=== PATIENT | male | born 1935 | race Caucasian/White ===

== ENCOUNTER 2017-09-25 10:16 | Inpatient (IN) | payer MEDICARE, OTHER ==
[2017-09-25 11:17] LABS: Hemoglobin 15.5 g/dL (14.0-18.0); Mean Corpuscular HGB CONC 32.9 g/dL (32.0-36.0); Mean Corpuscular Hemoglobin 34.4 pg (27.0-31.0); Mean Platelet Volume 8.3 fL (7.4-10.4); Platelet Count 184 thou/uL (130-400); RBC Distribution Width 12.8 % (11.5-14.5); White Blood Cell (WBC) Count 23.3 thou/uL (4.8-10.8)
[2017-09-25 11:31] LABS: Band 24 % (5-11); Lymphocytes 3 % (21-51); MDiff Complete? YES; Monocytes 1 % (0-10); Neutrophil 71 % (42-75); RBC Morphology Normal; Reactive Lymphocytes 1 % (0-10)
[2017-09-25 11:33] LABS: ALT (SGPT) 20 U/L (8-55); AST (SGOT) 20 U/L (5-34); Alkaline Phosphatase 126 U/L (40-150); Anion Gap 15 mmol/L (10-20); BUN (Urea Nitrogen) 27 mg/dL (8.4-25.7); Bilirubin, Total 1.8 mg/dL (0.2-1.2); Calc. Creatinine Clearance 0 mL/min (70-130); Calcium 10.2 mg/dL (7.8-10.44); Carbon Dioxide 23 mmol/L (23-31); Chloride 106 mmol/L (98-107); Estimated GFR-MDRD 60; Globulin 3.9 g/dL (2.4-3.5); Glucose 234 mg/dL (83-110); Potassium 4.1 mmol/L (3.5-5.1); Protein, Total 7.9 g/dL (5.8-8.1); Sodium 140 mmol/L (136-145)
[2017-09-25] MEDS ORDERED: ISOVUE-370 76%-LOCM 1 ML ONE (11:41)
--- NOTE | 2017-09-25 11:46 | RAD ---
AP CHEST: Indication: Altered mental status, shortness of breath. FINDINGS: There is bibasilar airspace opacity which may reflect bibasilar pneumonia or aspiration. The opacity involving the right lung base has persist since May 2017. There is some blunting to the costoph renic angle, suspicious for tiny effusions. Calcified granuloma in the right upper lobe is similar. C ardiomediastinal silhouette is unchanged. No acute osseous abnormality is evident. IMPRESSION: Bibasilar airspace opacity suspicious for pneumonia or aspiration. The right lung basilar opacity wa s present on the comparison 05-28-17. Recommend consideration for CT examination for further evaluation . Code T POS: FRANCISCA
[2017-09-25 12:23] LABS: CKMB 3.1 ng/mL (0-6.6); Troponin I 0.032 ng/mL (< 0.028)
[2017-09-25] MEDS ORDERED: methylPREDNISolone Sod Succ/PF 125 MG/2 ML VIAL ONE (12:25)
[2017-09-25] MEDS ORDERED: Cefepime 2 GM, Syringe 2.5 ML in Sterile Water 10 ML SLOW IVP SCH (12:30)
[2017-09-25] MEDS ORDERED: Oseltamivir 75 MG CAP PO SCH ×2 (12:30→14:15)
[2017-09-25 13:00] LABS: Lipase Less than 4 U/L (8-78); Magnesium 1.8 mg/dL (1.6-2.6)
[2017-09-25 13:07] LABS: Bilirubin Negative (Negative); Blood, Urine Negative (Negative); Clarity CLEAR (Clear); Glucose, Urine (Dipstick) Negative (Negative); Leukocyte Negative (Negative); Nitrite Negative (Negative); Protein, Urine (Dipstick) Negative (Neg-Trace); Specific Gravity, Urine 1.022 (1.002-1.036); pH, Urine 5.5 (5.0-9.0)
--- NOTE | 2017-09-25 14:25 | CT ---
CTA THORAX WITH CONTRAST: (Computed Tomographic Angiography, chest(noncoronary) with contrast material, and image postprocessin g) (PE protocol) DATE: 09-25-2017 HISTORY: 82-year-old male with dyspnea and cough. TECHNIQUE: IV injection of iodinated contrast: Isovue Scan acquisition timing attempted to coincide with iodinated contrast bolus reaching maximal density in pulmonary arteries. 3D MIP reconstructions. FINDINGS: There is a collection of airspace densities at all the basilar segments of the left lower lobe, consi stent with pneumonia. There is no pulmonary thromboembolism in the pulmonic trunk, left and right louise n pulmonary arteries, or their proximal branches. There is significant breathing motion artifact degr ading the images of the lower lobe branches of the pulmonary arteries, especially the left. Thoracic aorta is tortuous and has atherosclerotic calcifications, but there is no aortic dissection or aneury sm. No cardiomegaly, pleural effusion, or pneumothorax. Mild ground glass densities at the basilar se gments of the right lower lobe, nonspecific. The left basilar infiltrates are much worse than on prev ious CT of 01-04-16. There is a new, approximately 9 mm noncalcified irregularly shaped pulmonary nodule at the lateral as pect of the lingula (axial image 105 of 146, series 3; coronal image 37 of 124, series 400). There is a small region of tree in bud pattern at the anterior segment of the left upper lobe, which is in a similar location to similar finding on the previous CT of 01-04-16, but the specific pattern o f arrangement is different, and therefore, this is probably a recurrent, similar such process (moore l image 21 or 124, series 400; axial images 79-93 of 146, series 3). In the contralateral right lower lobe superior segment, again demonstrated in the moderately large cl uster of densely calcified material within the lung parenchyma, stable and benign. There is an approximately 8 mm right lateral pleural based noncalcified pulmonary nodule at the later al basilar segment of the right lower lobe (axial image 113 of 146, series 3; coronal image 68 of 124 , series 400). There was a pulmonary nodule located slightly more posteriorly on the previous CT that is no longer present. The current nodule in this location is new. There are diffuse mild emphysematous changes throughout the lungs. Atherosclerotic calcification of c oronary arteries. IMPRESSION: 1. No evidence of central pulmonary thromboembolism. 2. Difficult to evaluate for left lower lobe branch pulmonary thromboembolism because of breathing mo tion artifact. 3. Evidence for left lower lobe pneumonia. 4. Multiple nodular and tree in bud densities in the anterior segment of the left upper lobe, consist ent with recurrent peribronchiolar infection. 5. At least two nonspecific small new bilateral pulmonary nodules (and interval resolution of previou sly demonstrated pulmonary nodules). Recommend six month follow up chest CT. 6. Coronary atherosclerotic disease. 7. Emphysema. Code lung nodule aguila POS: MILA
[2017-09-25] MEDS ORDERED: Acetaminophen 325 MG TAB PO PRN (15:51)
[2017-09-25] MEDS ORDERED: Ondansetron HCl/PF 4 MG/2 ML Vial IVP PRN (15:51)
[2017-09-25] MEDS ORDERED: Albuterol Sulfate 2.5 mg/3 ml Neb NEB PRN (15:51)
[2017-09-25] MEDS ORDERED: HYDROcodone/Acetaminophen 5/325 mg Tablet PO PRN (15:51)
[2017-09-25] MEDS ORDERED: Ondansetron ODT 4 MG TAB PO PRN (15:51)
--- NOTE | 2017-09-25 16:20 | HP ---
DATE OF ADMISSION: 09/25/2017 CHIEF COMPLAINT: Shortness of breath. HISTORY OF PRESENT ILLNESS: This is an 82-year-old elderly white male with no known past medical his tory, was recently suffering with some cough and cold for the past 1-2 weeks and has been going to [facility] primary care physician who started him on an antibiotic, which he took for almost 10 days to 2 week s and the patient had no relief with it and was having persistent shortness of breath and chest tight ness, so he decided to come to the ER for further evaluation. When patient presented to the ER, he h ad a regular workup done which showed elevated white count of 23,000. A chest x-ray, evidence of a b ilateral pneumonia. The patient otherwise was in good health. He was able to talk in full sentences . He required 3 liters of nasal cannula oxygen to keep him up to 92%. The patient denies having any known medical issues and he does not take any oral medications. He lives with his family, big joint family of 4 or 5 sons, and they live in one house and has good care. PAST MEDICAL HISTORY: None. PAST SURGICAL HISTORY: Left hip replacement, history of prostatectomy, and left hip repair. SOCIAL HISTORY: The patient is a not a known smoker. No history of alcohol. No history of illicit drug use. FAMILY HISTORY: No significant family history of coronary artery disease. This has been reviewed th oroughly and is not relevant for the elderly age of the patient. REVIEW OF SYSTEMS: All 12 systems are reviewed with the patient thoroughly. The following complete review of systems was negative, unless otherwise mentioned in the HPI or below: CONSTITUTIONAL: Weight loss or gain, sense of well-being, ability to conduct usual activities, exerc ise tolerance. SKIN/BREAST: Rash, itching, changes in hair growth or loss, nail changes, breast lumps, tenderness, swelling, nipple discharge. EYES: Vision, double vision, tearing, blind spots, pain. ENT/MOUTH: Headaches (location, time of onset, duration, precipitating factors), vertigo, lightheadedness, injury. Vision, double vision, tearing, blind spots, pain, nose b leeding, colds, obstruction, discharge, dental difficulties, gingival bleeding, dentures, neck stiffn ess, pain, tenderness, masses in thyroid or other areas CARDIOVASCULAR: Precordial pain, substernal distress, palpitations, syncope, dyspnea on exertion, or thopnea, nocturnal paroxysmal dyspnea, edema, cyanosis, hypertension, heart murmurs, varicosities, ph lebitis, claudication. RESPIRATORY: Pain, shortness of breath, wheezing, stridor, cough, hemoptysis, fever or night sweats GASTROINTESTINAL: Poor appetite, dysphagia, indigestion, abdominal pain, heartburn, eructation, naus ea, vomiting, hematemesis, jaundice, constipation, or diarrhea, abnormal stools (irina-colored, tarry, bloody, greasy, foul smelling), flatulence, hemorrhoids, recent changes in bowel habits. GENITOURINARY: Urgency, frequency, dysuria, nocturia, hematuria, polyuria, oliguria, unusual (or sagar nge in) color of urine, stones, hesitancy, change in size of stream, dribbling, acute retention or in continence, libido, potency. MUSCULOSKELETAL: Pain, swelling, redness or heat of muscles or joints, limitation, of motion, muscular weakness, atrophy, cramps. NEUROLOGIC/PSYCHIATRIC: Convulsions, paralyses, tremor, incoordination, paresthesias, difficulties w ith memory of speech, sensory or motor disturbances, or muscular coordination (ataxia, tremor), emoti onal problems, anxiety, depression, previous psychiatric care, unusual perceptions, hallucinations. ALLERGY/IMMUNOLOGIC: Skin rash, anemia, bleeding tendency, polydipsia, polyuria, intolerance to heat or cold. HOME MEDICATIONS: None. ALLERGIES: SULFA, SULFAMETHOXAZOLE, TRIMETHOPRIM. PHYSICAL EXAMINATION: VITAL SIGNS: Blood pressures are 130/80, heart rate is 88, respirations 18, saturation is 98% on guru m air. GENERAL: The patient is moderately built and moderately nourished. He does not appear to be in acut e distress at this time. HEENT: Atraumatic, normocephalic. PERRLA. Extraocular movements were intact. Oral mucosa is pink and moist. CARDIOVASCULAR: S1, S2 normal. No murmurs, rubs or gallops. LUNGS: Bilateral air entry was equal. No wheezing, no crackles. ABDOMEN: Soft and nontender. No guarding, no rebound tenderness. Bowel sounds normal. MUSCULOSKELETAL: No calf tenderness. No pedal edema. No tenderness. No joint swelling. SKIN: No cyanosis, no erythema, no rash, no pallor. NEUROLOGIC: Cranial nerve examination II-XII intact. No focal deficits were noted. LYMPHATICS: No evidence of any lymph nodes were noted. NECK: No evidence of any JVD or thyromegaly is noted. PSYCHIATRIC: No signs of suicidal ideation. No signs of matthew. No signs of depression. LABORATORY DATA: 1. WBC 23,000, hemoglobin is 15.5, hematocrit 47.0, platelets 184. 2. Sodium is 140, potassium 4.1, chloride 106, bicarb is 23, BUN 27, creatinine is 1.16. 3. BNP is 63. 4. Chest x-ray was reviewed by me was showing an evidence of bilateral infiltrates with opacities. ASSESSMENT AND PLAN: 1. Acute hypoxic respiratory failure. 2. Acute bilateral pneumonia, failed outpatient therapy. 3. Moderate dehydration. ASSESSMENT: 1. History of prostate cancer. 2. History of depression. PLAN: 1. Plan is to start the patient on nebulizer treatments every 4 hours with DuoNebs and albuterol neb s as needed. We will start the patient on IV antibiotics with cefepime and levofloxacin as the patie nt failed outpatient therapy. 2. We will closely monitor. If the patient showing no improvement, we will consult Pulmonary at brad t time. The patient presently has signs of developing sepsis with elevated lactic acid, but this cou ld be secondary to dehydration. We will closely monitor the patient. 3. The patient mentions a history of a stent placement, but more than 12 years ago, a cardiac stent placement and he does not see the band tier. We will continue the patient on aspirin at this time and losartan and rivastigmine. We will closely monitor this patient and will check 2D echo if there is no improvement in his breathing. 4. The patient has a history of elevated blood pressures as stated on, but he does not remember taki ng his medications. He is on losartan 100 mg p.o. daily. We will continue with this medication at t his time. 5. History of depression. No evidence of any low moods or depressive symptoms were noted. We will continue the patient on sertraline 25 mg p.o. daily. 6. History of prostate cancer removal. We will continue the patient on Tamsulosin 0.4 mg p.o. daily . 7. DVT prophylaxis, Lovenox 40 mg subcu daily. I spent 70 minutes on this patient.
[2017-09-25 16:49] LABS: Troponin I 0.026 ng/mL (< 0.028)
[2017-09-25 20:05] LABS: Lactic Acid 1.2 mmol/L (0.5-2.2)
[2017-09-25 20:14] LABS: Troponin I 0.024 ng/mL (< 0.028)
[2017-09-25] MEDS ORDERED: Cefepime 2 GM in Sodium Chloride 0.9% 100 ML IVPB SCH (21:00)
[2017-09-25] MEDS ORDERED: Famotidine/PF 20 mg/2ml Vial ONE (21:29)
[2017-09-26 01:35] VITALS: BMI 22.6
[2017-09-26] MEDS: Brimonidine Tartrate 0.2% Ophth Soln 5 ml Bottle EA EYE SCH ×4 (01:40→21:50)
[2017-09-26] MEDS: Sodium Chloride 0.9% 1,000 ML IV SCH ×4 (01:40→22:02)
[2017-09-26] MEDS: Latanoprost 0.005% Ophth Soln 2.5 ml Bottle EA EYE SCH ×2 (01:41→21:52)
[2017-09-26] MEDS: guaiFENesin ER 600 MG TAB PO SCH ×3 (01:41→21:48)
[2017-09-26] MEDS: Famotidine/PF 20 mg/2ml Vial SLOW IVP SCH ×3 (01:41→22:02)
[2017-09-26] MEDS: Cefepime 2 GM, Syringe 2.5 ML in Sterile Water 10 ML SLOW IVP SCH ×2 (04:26→14:29)
[2017-09-26 06:26] LABS: Anion Gap 10 mmol/L (10-20); BUN (Urea Nitrogen) 25 mg/dL (8.4-25.7); Calc. Creatinine Clearance 80 mL/min (70-130); Carbon Dioxide 20 mmol/L (23-31); Chloride 114 mmol/L (98-107); Estimated GFR-MDRD Greater than 90; Glucose 193 mg/dL (83-110); Potassium 3.5 mmol/L (3.5-5.1); Sodium 140 mmol/L (136-145)
[2017-09-26 06:37] LABS: Hemoglobin 11.7 g/dL (14.0-18.0); Mean Corpuscular HGB CONC 33.2 g/dL (32.0-36.0); Mean Corpuscular Hemoglobin 34.8 pg (27.0-31.0); Mean Platelet Volume 8.6 fL (7.4-10.4); Platelet Count 151 thou/uL (130-400); RBC Distribution Width 12.4 % (11.5-14.5); Red Blood Cell (RBC) Count 3.37 mill/uL (4.70-6.10); White Blood Cell (WBC) Count 20.9 thou/uL (4.8-10.8)
[2017-09-26 06:41] LABS: Band 12 % (5-11); Lymphocytes 3 % (21-51); MDiff Complete? YES; Monocytes 4 % (0-10); Neutrophil 80 % (42-75); PLT Morphology Comment Appears Adequate; Reactive Lymphocytes 1 % (0-10)
[2017-09-26] MEDS: Tamsulosin HCl 0.4 MG CAP PO SCH (10:20)
[2017-09-26] MEDS: Aspirin 81 mg Enteric Coated Tablet PO SCH (10:20)
[2017-09-26] MEDS: Losartan 25 MG TAB PO SCH (10:21)
[2017-09-26] MEDS: Enoxaparin Sodium 40 MG/0.4 ML SYRINGE SC SCH (10:22)
[2017-09-26] MEDS: Rivastigmine 9.5mg/24 Hour PATCH TOP SCH (10:35)
[2017-09-26] MEDS: Stress 600 With Zinc 1 TAB PO SCH (10:35)
--- NOTE | 2017-09-26 16:47 | PDOC.PN ---
- Subjective Encounter Start Date: 09/26/17 Encounter Start Time: 11:00 Patient Is seen today, along with his Grand daughter at bedside. he says he feels better, he remains on [place] oxygen. - Objective Resuscitation Status: Resuscitation Status FULL:Full Resuscitation MAR Reviewed: Yes Vital Signs & Weight: Vital Signs (12 hours) Temp Pulse Pulse Pulse Resp BP BP 09/26/17 13:20 98.1 F 64 18 09/26/17 12:37 09/26/17 12:30 09/26/17 11:36 60 12 09/26/17 09:35 84 88 120/59 L 133/61 09/26/17 09:05 97.8 F 67 20 09/26/17 08:02 97.8 F 60 20 BP Pulse Ox 09/26/17 13:20 120/61 93 L 09/26/17 12:37 95 09/26/17 12:30 90 L 09/26/17 11:36 09/26/17 09:35 09/26/17 09:05 120/61 93 L 09/26/17 08:02 Weight Admit Weight 171 lb 1.6 oz Weight 171 lb 1.6 oz I&O: 09/25/17 09/26/17 09/27/17 06:59 06:59 06:59 Intake Total 859 Output Total 425 Balance 434 Result Diagrams: 09/26/17 05:28 09/26/17 05:28 Radiology Reviewed by me: Yes Phys Exam - Physical Examination HEENT: PERRLA, moist MMs Neck: no nodes, no JVD Respiratory: no rhonchi, wheezing present Cardiovascular: RRR, no significant murmur, no rub Gastrointestinal: soft, non-tender, no distention Musculoskeletal: no edema, pulses present Neurological: non-focal, normal sensation Lymphatic: no nodes Psychiatric: normal affect, A&O x 3 Dx/Plan (1) Acute respiratory failure with hypoxia Code(s): J96.01 - ACUTE RESPIRATORY FAILURE WITH HYPOXIA Status: Acute (2) Centrilobular emphysema Code(s): J43.2 - CENTRILOBULAR EMPHYSEMA Status: Acute (3) Bilateral pneumonia Code(s): J18.9 - PNEUMONIA, UNSPECIFIED ORGANISM Status: Acute (4) Moderate dehydration Code(s): E86.0 - DEHYDRATION Status: Acute - Plan plan discussed w/ family, continue antibiotics, PT/OT, incentive spirometry, DVT proph w/lovenox * . Plan is to Continue with IV antibiotics, pt has Sepsis with Elevated WBC, improving slowly, Will repeat Chest xray tomorrow. Consulted Pulmonary waiting on recommedations,. Patient has signs suggestive of Ephesema with CT findings suggestive of possibel Alveolar inflammation, pt is high risk for sdecompensation, Will sharon Monitor. Patient is continued on Duonebs and albuteral nebs. Hay is also on Tamiflu for prophylaxis: DVT prophylaxis: lovenox 40mg Sc daily. - Discharge Day Encounter end time: 11:45 Review of Systems - Review of Systems Constitutional: weakness Eyes: negative: Pain, Vision Change, Conjunctivae Inflammation, Eyelid Inflammation, Redness, Other ENT: negative: Ear Pain, Ear Discharge, Nose Pain, Nose Discharge, Nose Congestion, Mouth Pain, Mouth Swelling, Throat Pain, Throat Swelling, Other Respiratory: Cough, Shortness of Breath, SOB with Excertion, Wheezing Cardiovascular: negative: chest pain, palpitations, orthopnea, paroxysmal nocturnal dyspnea, edema, light headedness, other Gastrointestinal: negative: Nausea, Vomiting, Abdominal Pain, Diarrhea, Constipation, Melena, Hematochezia, Other Genitourinary: negative: Dysuria, Frequency, Incontinence, Hematuria, Retention , Other Musculoskeletal: negative: Neck Pain, Shoulder Pain, Arm Pain, Back Pain, Hand Pain, Leg Pain, Foot Pain, Other Skin: negative: Rash, Lesions, Godfrey, Bruising, Other Neurological: negative: Weakness, Numbness, Incoordination, Change in Speech, Confusion, Seizures, Other - Medications/Allergies Allergies/Adverse Reactions: Allergies Allergy/AdvReac Type Severity Reaction Status Date / Time Sulfa (Sulfonamide Allergy Verified 04/11/17 17:16 Antibiotics) sulfamethoxazole Allergy Verified 04/11/17 17:16 [From Bactrim] trimethoprim [From Bactrim] Allergy Verified 04/11/17 17:16 Medications: Current Medications Acetaminophen (Tylenol) 650 mg PO Q4H PRN PRN Reason: Headache/Fever or Pain Hydrocodone Bitart/Acetaminophen ([place] 5/325) 1 tab PO Q4H PRN PRN Reason: Moderate Pain (4-6) Albuterol Sulfate (Ventolin) 2.5 mg NEB Q2H PRN PRN Reason: Wheezing Albuterol/Ipratropium (Duoneb) 3 ml NEB QID PRN PRN Reason: SOB &/or Wheezing Albuterol/Ipratropium (Duoneb) 3 ml NEB [id number] [facility] Last Admin: 09/26/17 11:36 Dose: 3 ml Aspirin (Ecotrin) 81 mg PO DAILY [facility] Last Admin: 09/26/17 10:20 Dose: 81 mg Brimonidine Tartrate (Alphagan 0.2% [facility] Sol) 1 drop EA EYE TID [facility] Last Admin: 09/26/17 14:34 Dose: 1 drop Enoxaparin Sodium (Lovenox) 40 mg SC 0900 [facility] Last Admin: 09/26/17 10:22 Dose: 40 mg Famotidine (Pepcid) 20 mg SLOW IVP Q12HR [facility] Last Admin: 09/26/17 10:21 Dose: 20 mg Guaifenesin (Mucinex) 1,200 mg PO Q12HR [facility] Last Admin: 09/26/17 10:20 Dose: 1,200 mg Levofloxacin 750 mg/ Device 150 mls @ 100 mls/hr IVPB Q24HR [facility] Last Admin: 09/26/17 01:40 Dose: Not Given Sodium Chloride (Normal Saline 0.9%) 1,000 mls @ 100 mls/hr IV .Q10H [facility] Last Admin: 09/26/17 11:32 Dose: 1,000 mls Cefepime HCl 2 gm/ Syringe 2.5 (ml/ Sterile Water) 12.5 mls @ 150 mls/hr SLOW IVP 0300,1500 [facility] Last Admin: 09/26/17 14:29 Dose: 12.5 mls Latanoprost (Xalatan 0.005% [facility] Soln) 1 drop EA EYE HS [facility] Last Admin: 09/26/17 01:41 Dose: Not Given Losartan Potassium (Cozaar) 100 mg PO DAILY [facility] Last Admin: 09/26/17 10:21 Dose: 100 mg Multivitamins/Zinc (Stress 600 With Zinc) 1 tab PO QAM [facility] Last Admin: 09/26/17 10:35 Dose: 1 tab Ondansetron HCl (Zofran Odt) 4 mg PO Q6H PRN PRN Reason: Nausea/Vomiting Ondansetron HCl (Zofran) 4 mg IVP Q6H PRN PRN Reason: Nausea/Vomiting Pneumococcal 13-Valent Conj Vacc (Prevnar) 0.5 ml IM .ONCE ONE Stop: 09/27/17 09:01 Rivastigmine (Exelon Patch) 9.5 mg TOP DAILY [facility] Last Admin: 09/26/17 10:35 Dose: 9.5 mg Sertraline HCl (Zoloft) 25 mg PO DAILY [facility] Last Admin: 09/26/17 10:35 Dose: 25 mg Tamsulosin HCl (Flomax) 0.4 mg PO DAILY [facility] Last Admin: 09/26/17 10:20 Dose: 0.4 mg
[2017-09-27] MEDS: Cefepime 2 GM, Syringe 2.5 ML in Sterile Water 10 ML SLOW IVP SCH ×2 (05:47→14:46)
[2017-09-27 06:44] LABS: Anion Gap 10 mmol/L (10-20); BUN (Urea Nitrogen) 25 mg/dL (8.4-25.7); Calc. Creatinine Clearance 81 mL/min (70-130); Calcium 8.7 mg/dL (7.8-10.44); Carbon Dioxide 20 mmol/L (23-31); Chloride 115 mmol/L (98-107); Estimated GFR-MDRD Greater than 90; Glucose 147 mg/dL (83-110); Potassium 3.5 mmol/L (3.5-5.1); Sodium 141 mmol/L (136-145)
[2017-09-27 06:50] LABS: Band 6 % (5-11); Eosinophils 1 % (0-10); Lymphocytes 8 % (21-51); MDiff Complete? YES; Mean Corpuscular HGB CONC 33.3 g/dL (32.0-36.0); Mean Platelet Volume 8.1 fL (7.4-10.4); Monocytes 1 % (0-10); Neutrophil 84 % (42-75); Platelet Count 158 thou/uL (130-400); RBC Distribution Width 12.6 % (11.5-14.5); Red Blood Cell (RBC) Count 3.43 mill/uL (4.70-6.10); White Blood Cell (WBC) Count 11.8 thou/uL (4.8-10.8)
--- NOTE | 2017-09-27 08:59 | RAD ---
FRONTAL VIEW CHEST: Indication: Short of breath, pneumonia. FINDINGS: There is alveolar consolidation at the right lung base. Patchy left basilar opacity is present. There are interstitial opacities of each lung. Cardiac silhouette and pulmonary vasculature are prominent. There is ectasia and tortuosity at the thoracic aorta. IMPRESSION: Bilateral pulmonary parenchymal opacities which may be on the basis of bilateral, atypical pneumonia. Superimposed bilateral pleural fluid is suspected. Continued follow up is warranted. POS: FRANCISCAH
[2017-09-27] MEDS ORDERED: Prevnar 13-Val Conj/PF 0.5 ML SYRINGE IM ONE (09:00)
[2017-09-27] MEDS: Aspirin 81 mg Enteric Coated Tablet PO SCH (10:10)
[2017-09-27] MEDS: Sodium Chloride 0.9% 1,000 ML IV SCH (10:10)
[2017-09-27] MEDS: Stress 600 With Zinc 1 TAB PO SCH (10:10)
[2017-09-27] MEDS: Losartan 25 MG TAB PO SCH (10:10)
[2017-09-27] MEDS: guaiFENesin ER 600 MG TAB PO SCH ×2 (10:11→21:57)
[2017-09-27] MEDS: Enoxaparin Sodium 40 MG/0.4 ML SYRINGE SC SCH (10:11)
[2017-09-27] MEDS: Famotidine/PF 20 mg/2ml Vial SLOW IVP SCH (10:11)
[2017-09-27] MEDS: Tamsulosin HCl 0.4 MG CAP PO SCH (10:11)
[2017-09-27] MEDS: Rivastigmine 9.5mg/24 Hour PATCH TOP SCH (10:11)
[2017-09-27] MEDS: Brimonidine Tartrate 0.2% Ophth Soln 5 ml Bottle EA EYE SCH ×3 (10:12→21:51)
--- NOTE | 2017-09-27 13:56 | PDOC.PN ---
- Subjective Encounter Start Date: 09/27/17 Encounter Start Time: 13:00 Patient is seen along with Family at bed side, pt remains on oxygen, discussed with son, pt has remote h/o COPD, recently admitted many times since 6 months for SOB, never referred to pulmonary. requesting pulmonary consult. - Objective Resuscitation Status: Resuscitation Status FULL:Full Resuscitation MAR Reviewed: Yes Vital Signs & Weight: Vital Signs (12 hours) Temp Pulse Resp BP Pulse Ox 09/27/17 12:33 98.6 F 77 18 130/69 94 L 09/27/17 11:22 80 20 97 09/27/17 11:09 80 20 97 09/27/17 08:00 97.4 F L 78 16 164/79 H 99 09/27/17 07:01 91 L 09/27/17 06:59 82 20 91 L 09/27/17 04:00 97.9 F 85 18 123/58 L 90 L 09/27/17 02:49 77 16 95 Weight Admit Weight 171 lb 1.6 oz Weight 177 lb I&O: 09/26/17 09/27/17 09/28/17 06:59 06:59 06:59 Intake Total 859 2107 Output Total 425 730 Balance 434 1377 Result Diagrams: 09/27/17 05:55 09/27/17 05:55 Radiology Reviewed by me: Yes (Pleural fluid bilaterally,? chf) Phys Exam - Physical Examination HEENT: PERRLA, moist MMs Neck: no nodes, no JVD Respiratory: no rales, wheezing present Cardiovascular: RRR, no significant murmur Gastrointestinal: soft, non-tender Musculoskeletal: no edema, pulses present Lymphatic: no nodes Psychiatric: normal affect, A&O x 3 Dx/Plan (1) Acute respiratory failure with hypoxia Code(s): J96.01 - ACUTE RESPIRATORY FAILURE WITH HYPOXIA Status: Acute (2) Centrilobular emphysema Code(s): J43.2 - CENTRILOBULAR EMPHYSEMA Status: Acute (3) Bilateral pneumonia Code(s): J18.9 - PNEUMONIA, UNSPECIFIED ORGANISM Status: Acute (4) Moderate dehydration Code(s): E86.0 - DEHYDRATION Status: Resolved (5) Volume overload Code(s): E87.70 - FLUID OVERLOAD, UNSPECIFIED Status: Acute - Plan cont current plan of care, continue antibiotics, PT/OT, respiratory therapy, incentive spirometry, out of bed/ambulate, DVT proph w/lovenox * . Patient has likely volume overload, with fluid on lungs, will d/c IV fluids, will start on lasix 20mg IV BID, monitor renal fucntions, will order BNP and 2D Echo. r/o CHF. pt has h/o stents in the past. Plan is to Continue with IV antibiotics, pt has Sepsis with Elevated WBC, improving slowly, repeat Chest xray showed pleural fluid bilaterally. Consulted Pulmonary for recurrent admisisons with worsening emphesema. Patient has signs suggestive of Ephesema with CT findings suggestive of possibel Alveolar inflammation, pt is high risk for sdecompensation, Will sharon Monitor. Patient is continued on Duonebs and albuteral nebs. Hay is also on Tamiflu for prophylaxis: DVT prophylaxis: lovenox 40mg Sc daily. - Discharge Day Encounter end time: 13:35 Review of Systems - Review of Systems Constitutional: weakness Eyes: negative: Pain, Vision Change, Conjunctivae Inflammation, Eyelid Inflammation, Redness, Other ENT: negative: Ear Pain, Ear Discharge, Nose Pain, Nose Discharge, Nose Congestion, Mouth Pain, Mouth Swelling, Throat Pain, Throat Swelling, Other Respiratory: Cough, Shortness of Breath, SOB with Excertion. negative: Dry, Hemoptysis, Pleuritic Pain, Sputum, Wheezing Cardiovascular: negative: chest pain, palpitations, orthopnea, paroxysmal nocturnal dyspnea, edema, light headedness, other Gastrointestinal: negative: Nausea, Vomiting, Abdominal Pain, Diarrhea, Constipation, Melena, Hematochezia, Other Genitourinary: negative: Dysuria, Frequency, Incontinence, Hematuria, Retention , Other Musculoskeletal: negative: Neck Pain, Shoulder Pain, Arm Pain, Back Pain, Hand Pain, Leg Pain, Foot Pain, Other Skin: negative: Rash, Lesions, Godfrey, Bruising, Other Neurological: negative: Weakness, Numbness, Incoordination, Change in Speech, Confusion, Seizures, Other - Medications/Allergies Allergies/Adverse Reactions: Allergies Allergy/AdvReac Type Severity Reaction Status Date / Time Sulfa (Sulfonamide Allergy Verified 04/11/17 17:16 Antibiotics) sulfamethoxazole Allergy Verified 04/11/17 17:16 [From Bactrim] trimethoprim [From Bactrim] Allergy Verified 04/11/17 17:16 Medications: Current Medications Acetaminophen (Tylenol) 650 mg PO Q4H PRN PRN Reason: Headache/Fever or Pain Hydrocodone Bitart/Acetaminophen ([place] 5/325) 1 tab PO Q4H PRN PRN Reason: Moderate Pain (4-6) Albuterol Sulfate (Ventolin) 2.5 mg NEB Q2H PRN PRN Reason: Wheezing Albuterol/Ipratropium (Duoneb) 3 ml NEB QID PRN PRN Reason: SOB &/or Wheezing Albuterol/Ipratropium (Duoneb) 3 ml NEB [id number] [facility] Last Admin: 09/27/17 11:09 Dose: 3 ml Aspirin (Ecotrin) 81 mg PO DAILY [facility] Last Admin: 09/27/17 10:10 Dose: 81 mg Brimonidine Tartrate (Alphagan 0.2% Ophth Soln) 1 drop EA EYE TID [facility] Last Admin: 09/27/17 10:12 Dose: 1 drop Enoxaparin Sodium (Lovenox) 40 mg SC 0900 [facility] Last Admin: 09/27/17 10:11 Dose: 40 mg Famotidine (Pepcid) 20 mg SLOW IVP Q12HR [facility] Last Admin: 09/27/17 10:11 Dose: 20 mg Furosemide (Lasix) 20 mg SLOW IVP 0600,1400 [facility] Guaifenesin (Mucinex) 1,200 mg PO Q12HR [facility] Last Admin: 09/27/17 10:11 Dose: 1,200 mg Levofloxacin 750 mg/ Device 150 mls @ 100 mls/hr IVPB Q24HR [facility] Last Admin: 09/26/17 18:38 Dose: 150 mls Cefepime HCl 2 gm/ Syringe 2.5 (ml/ Sterile Water) 12.5 mls @ 150 mls/hr SLOW IVP 0300,1500 [facility] Last Admin: 09/27/17 05:47 Dose: 12.5 mls Latanoprost (Xalatan 0.005% [facility] Soln) 1 drop EA EYE HS [facility] Last Admin: 09/26/17 21:52 Dose: Not Given Losartan Potassium (Cozaar) 100 mg PO DAILY [facility] Last Admin: 09/27/17 10:10 Dose: 100 mg Multivitamins/Zinc (Stress 600 With Zinc) 1 tab PO QAM [facility] Last Admin: 09/27/17 10:10 Dose: 1 tab Ondansetron HCl (Zofran Odt) 4 mg PO Q6H PRN PRN Reason: Nausea/Vomiting Ondansetron HCl (Zofran) 4 mg IVP Q6H PRN PRN Reason: Nausea/Vomiting Rivastigmine (Exelon Patch) 9.5 mg TOP DAILY [facility] Last Admin: 09/27/17 10:11 Dose: 9.5 mg Sertraline HCl (Zoloft) 25 mg PO DAILY [facility] Last Admin: 09/27/17 10:11 Dose: 25 mg Tamsulosin HCl (Flomax) 0.4 mg PO DAILY [facility] Last Admin: 09/27/17 10:11 Dose: 0.4 mg
[2017-09-27] MEDS: Furosemide 20 MG/2 ML VIAL SLOW IVP SCH (14:46)
[2017-09-27] MEDS: Latanoprost 0.005% Ophth Soln 2.5 ml Bottle EA EYE SCH (21:50)
[2017-09-27] MEDS: Famotidine 20 MG TAB PO SCH (21:51)
[2017-09-28] MEDS: Cefepime 2 GM, Syringe 2.5 ML in Sterile Water 10 ML SLOW IVP SCH (04:23)
[2017-09-28] MEDS: Furosemide 20 MG/2 ML VIAL SLOW IVP SCH ×2 (06:17→14:52)
[2017-09-28 06:47] LABS: Anion Gap 11 mmol/L (10-20); BUN (Urea Nitrogen) 22 mg/dL (8.4-25.7); Calc. Creatinine Clearance 76 mL/min (70-130); Calcium 9.1 mg/dL (7.8-10.44); Carbon Dioxide 26 mmol/L (23-31); Chloride 108 mmol/L (98-107); Estimated GFR-MDRD Greater than 90; Glucose 123 mg/dL (83-110); Potassium 3.5 mmol/L (3.5-5.1); Sodium 141 mmol/L (136-145)
[2017-09-28 07:24] LABS: Anisocytosis SLIGHT = 6-15 cells (100X) (0-5/hpf); Band 1 % (5-11); Eosinophils 2 % (0-10); Hemoglobin 12.6 g/dL (14.0-18.0); Lymphocytes 26 % (21-51); MDiff Complete? YES; Mean Corpuscular HGB CONC 33.3 g/dL (32.0-36.0); Mean Corpuscular Hemoglobin 34.9 pg (27.0-31.0); Monocytes 5 % (0-10); Neutrophil 66 % (42-75); Platelet Count 191 thou/uL (130-400); RBC Distribution Width 12.5 % (11.5-14.5); Red Blood Cell (RBC) Count 3.61 mill/uL (4.70-6.10); White Blood Cell (WBC) Count 6.5 thou/uL (4.8-10.8)
[2017-09-28] MEDS: Brimonidine Tartrate 0.2% Ophth Soln 5 ml Bottle EA EYE SCH ×3 (09:00→23:14)
[2017-09-28] MEDS: Losartan 25 MG TAB PO SCH (10:03)
[2017-09-28] MEDS: Aspirin 81 mg Enteric Coated Tablet PO SCH (10:04)
[2017-09-28] MEDS: Famotidine 20 MG TAB PO SCH ×2 (10:04→23:33)
[2017-09-28] MEDS: guaiFENesin ER 600 MG TAB PO SCH ×2 (10:04→23:07)
[2017-09-28] MEDS: Tamsulosin HCl 0.4 MG CAP PO SCH (10:05)
--- NOTE | 2017-09-28 13:39 | PDOC.PN ---
- Subjective Encounter Start Date: 09/28/17 Encounter Start Time: 08:30 -: old records requested/rev Pt seen and examined, chart reviewed in its entirety. This is my first visit with this patient. Prt sitting up ont he BS commode, no CP, no SOb, no N/V/D/C, no F/c. Pt still requiring 2L O2 NC. No new complaints. Pt states hes planning on going home, [employer] has him set up to go to [facility] on discharge. Will discuss with pt and family 10 point ROS performed and neg for all systems except as above - Objective Resuscitation Status: Resuscitation Status FULL:Full Resuscitation MAR Reviewed: Yes Vital Signs & Weight: Vital Signs (12 hours) Temp Pulse Resp BP Pulse Ox 09/28/17 11:53 76 20 09/28/17 11:12 97.3 F L 70 18 135/65 97 09/28/17 08:00 97.7 F 76 20 155/80 H 94 L 09/28/17 06:35 92 L 09/28/17 06:34 79 20 92 L 09/28/17 04:00 98.4 F 75 18 131/64 97 09/28/17 02:26 58 L 16 99 Weight Admit Weight 171 lb 1.6 oz Weight 161 lb I&O: 09/27/17 09/28/17 09/29/17 06:59 06:59 06:59 Intake Total 2107 1800 Output Total 730 3150 Balance 1377 -1350 Result Diagrams: 09/28/17 05:19 09/28/17 05:19 Radiology Reviewed by me: Yes EKG Reviewed by me: Yes Phys Exam - Physical Examination Constitutional: NAD HEENT: PERRLA, moist MMs, sclera anicteric, oral pharynx no lesions Neck: no nodes, no JVD, supple, full ROM Respiratory: no wheezing, no rales, no rhonchi, clear to auscultation bilateral bilateral crackles in both bases. Cardiovascular: RRR, no significant murmur, no rub Gastrointestinal: soft, non-tender, no distention, positive bowel sounds Musculoskeletal: pulses present, edema present Neurological: non-focal, normal sensation, moves all 4 limbs Lymphatic: no nodes Psychiatric: normal affect, A&O x 3 Skin: no rash, normal turgor, cap refill <2 seconds Dx/Plan (1) Acute respiratory failure with hypoxia Code(s): J96.01 - ACUTE RESPIRATORY FAILURE WITH HYPOXIA Status: Acute Comment: wean O2 as tolerated, may need for a short preiod. to Rehab or home likely tomorrow (2) Bilateral pneumonia Code(s): J18.9 - PNEUMONIA, UNSPECIFIED ORGANISM Status: Acute Qualifiers: Pneumonia type: due to unspecified organism Lung location: lower lobe of lung Qualified Code(s): J18.9 - Pneumonia, unspecified organism Comment: community acquired, PCR with rhinovirus, responding well to abx. continue for another few days (3) Centrilobular emphysema Code(s): J43.2 - CENTRILOBULAR EMPHYSEMA Status: Chronic (4) Volume overload Code(s): E87.70 - FLUID OVERLOAD, UNSPECIFIED Status: Acute Qualifiers: Hypervolemia type: other Qualified Code(s): E87.79 - Other fluid overload Comment: diuresis well, feeling better. CCM at present, re-eval in AM (5) Moderate dehydration Code(s): E86.0 - DEHYDRATION Status: Resolved - Plan cont current plan of care, plan discussed w/ family, continue antibiotics, PT/OT , social services manager, respiratory therapy * .
[2017-09-28] MEDS: Stress 600 With Zinc 1 TAB PO SCH (14:22)
[2017-09-28] MEDS: Rivastigmine 9.5mg/24 Hour PATCH TOP SCH (14:52)
[2017-09-28] MEDS: Enoxaparin Sodium 40 MG/0.4 ML SYRINGE SC SCH (14:52)
[2017-09-28] MEDS: Latanoprost 0.005% Ophth Soln 2.5 ml Bottle EA EYE SCH (23:15)
--- NOTE | 2017-09-29 07:42 | CON ---
DATE OF CONSULTATION: 09/28/2017 SERVICE: Pulmonary Medicine. REASON FOR CONSULTATION: COPD. HISTORY OF PRESENT ILLNESS: The patient is a very pleasant 82-year-old white male. In 2011, he lost his . After this occurred, it became apparent to his children that he was helping to match some of his underlying cognitive impairment. He has had slowly progressed to dementia over these 6 years . He could not balance the books. He lost his privilege for driving several years ago. He is getti ng to the point where he has had having decreasing stability on his legs despite being extraordinaril y strong. He has had 3 separate pneumonias in the past 3 years. They all seemed to happen during winter month. Either way, he was in his usual state of health until his family noticed that he was off. He had some confusion. He is also coughing up significant amount of green sputum. He was bro ught to the hospital. Blood pressure was low. He was discovered to have left lower lobe pneumonia. Antibiotics for the pneumonia were initiated. His white blood cell count was extraordinarily high a nd this is subsequently improved dramatically. He is being getting diuretics over the past 24 hours for possible volume overload. He is essentially returning to his usual state of health, but still re quires a little bit of oxygen because he de-saturates whenever it is improved. He has severe COPD. This is based on emphysematous changes on the CT scan of lung. He has never had pulmonary function s tudies, but truth be told, he may not be able to undergo those. The family requested that he see a [facility] doctor because of severe COPD. In the outpatient setting, he has dyspnea that does limit his act ivity. He uses DuoNeb scheduled 3 times daily. Outside of this, he was not on any breathing medicat ions. He typically takes 1 to 2 minutes to recover from any mild activity. This has also been slowl y progressive over the past 5 to 10 years. PAST MEDICAL HISTORY: 1. BPH. 2. Dementia. 3. Hypertension. 4. Depression. PAST SURGICAL HISTORY: 1. Left hip replacement. 2. Prostatectomy. 3. Left hip repair. SOCIAL HISTORY: Negative for alcohol, tobacco or illicit drug use. He has a greater than 150 pack y ear history of smoking, but quit a long time ago. He denies any exposure to chemicals, dust, asbesto s or tuberculosis. FAMILY HISTORY: Noncontributory. REVIEW OF SYSTEMS: General, head, ears, eyes, nose, throat, cardiovascular, respiratory, GI, , mus culoskeletal, neurologic and skin is negative except as mentioned in the HPI. PHYSICAL EXAMINATION: VITAL SIGNS: Afebrile, pulse 76, blood pressure 135/67, respirations 20, saturations 92% on 2 L nasa l cannula. GENERAL: The patient is awake and alert, in no apparent distress. LUNGS: Excellent air entry. There is a prolonged expiratory phase. I typically do not hear much in the way of wheezing or crackles. There are no rhonchi present anteriorly. Dependently, there are s ome crackles, particularly on the left. HEART: Normal rate, regular. ABDOMEN: Soft, nontender, nondistended. Bowel sounds are positive. MUSCULOSKELETAL: No cyanosis or clubbing. No pitting in the bilateral lower extremities. NEUROLOGIC: Grossly nonfocal. LABORATORY DATA: WBC has improved from 23, down to 6.5. Hemoglobin remains stable at 12.6, platelet s 191,000. Band counts have essentially resolved. Neutrophil count is down into the normal limits a t this point. D-dimer was elevated. Basic metabolic profile is unremarkable. BNP is 172. Liver fu nction studies on presentation were unremarkable. His troponin is down trending. Respiratory cultur e is negative. Respiratory virus panel was positive for rhinovirus. Blood cultures x2 and urine cul ture is negative. Influenza A and B are unremarkable. IMAGIN. Chest x-ray demonstrates left lower lobe infiltrate. Dependent portions of the lung are cutoff. There is also an apparent right lower lobe infiltrate. This is superimposed on chronic lung changes . 2. CT of the chest demonstrates extensive emphysematous changes throughout bilateral lung johnson. T here is a hint of volume overload suggested on this film. There is a dense infiltrate in the left lo wer lobe. There was also a small pulmonary nodular lesion in the lingula. There is a small infiltra te also present in the right lower lobe. Bronchial wall thickening is present. ASSESSMENT: 1. Acute hypoxic respiratory failure. 2. Chronic obstructive pulmonary disease with acute exacerbation, secondary to rhinovirus. 3. Dementia. 4. Gastroesophageal reflux disease with likely recurrent aspiration. PLAN: At this point, the patient is stable for transition out of the hospital. I think Archana is pe rfectly responsible in the outpatient setting given his cognitive impairment. He would likely findin g it challenging to coordinate an MDI or other type of inhaler. His antibiotics course to complete 7 days of Levaquin. I will switch him over to oral medication today. In 4 to 6 weeks in the outpatie nt setting, he needs to have a repeat chest x-ray to verify the infiltrate in the lung has resolved. If it has not, consultation with Pulmonary should be considered. In the outpatient setting, the pat ient needs to take care to avoid any reflux-related disease by avoiding p.o. within 2 hours of being flat and lying semirecumbent while sleeping. He will need to go out on oxygen as he is hypoxemic on room air. This can be reevaluated in the outpatient setting, but I do think the patient may benefit from this at home. At this point, he has no further requirements for inpatient Pulmonary or Critical Care opinion. As such, I will sign off. Please call with additional questions or concerns.
[2017-09-29] MEDS ORDERED: Sodium Chloride 0.9% 10 ML ONE (08:03)
--- NOTE | 2017-09-29 08:18 | RAD ---
FRONTAL VIEW CHEST: COMPARISON: 09/27/17. INDICATION: Pulmonary edema, pneumonia. FINDINGS: Slight improvement of bibasilar opacities, with interstitial and reticulonodular opacification remain ing most notable at the right lower lung zone. Mild bilateral pleural fluid present. No additional significant interval change. IMPRESSION: Improving bilateral pleural and parenchymal opacities. Residua does remain. Followup to resolution is recommended. POS: [facility]
[2017-09-29] MEDS: Aspirin 81 mg Enteric Coated Tablet PO SCH (09:12)
[2017-09-29] MEDS: Brimonidine Tartrate 0.2% Ophth Soln 5 ml Bottle EA EYE SCH (09:12)
[2017-09-29] MEDS: guaiFENesin ER 600 MG TAB PO SCH (09:13)
[2017-09-29] MEDS: Enoxaparin Sodium 40 MG/0.4 ML SYRINGE SC SCH (09:13)
[2017-09-29] MEDS: Losartan 25 MG TAB PO SCH (09:14)
[2017-09-29] MEDS: Stress 600 With Zinc 1 TAB PO SCH (09:15)
[2017-09-29] MEDS: Rivastigmine 9.5mg/24 Hour PATCH TOP SCH (09:15)
[2017-09-29] MEDS: Tamsulosin HCl 0.4 MG CAP PO SCH (09:16)
[2017-09-29 12:24] VITALS: BP 126/75; TEMP 97.4
--- NOTE | 2017-09-29 15:34 | DIS ---
DATE OF ADMISSION: 09/25/2017 DATE OF DISCHARGE: 09/29/2017 DISCHARGE DIAGNOSES: 1. Acute hypoxemic respiratory failure secondary to acute exacerbation of chronic obstructive pulmon lisseth disease and bilateral lower lobe infiltrates. 2. Bilateral lower lobe pneumonia. 3. Rhinovirus PCR positive upper respiratory infection. 4. Dementia. 5. Gastroesophageal reflux disease. 6. Likely probable recurrent aspiration syndrome. 7. Physical decondition. CONSULTATIONS: Pulmonary or Critical Care, Dr. Carmine Upton on 09/28/2017. PROCEDURES: None. HISTORY AND PHYSICAL: Mr. Mir is a pleasant 82-year-old male who was admitted on 09/25/2017 aft er taken to the emergency department with complaints of shortness of breath. He has some cough and c old symptoms for 1-2 weeks prior to admission and was started on antibiotic, we fixed for almost 10 d ays to 2 weeks. He had no relief with having persistent shortness of breath and chest tightness, so he came into the emergency department. On evaluation, he was found to have white count 23,000. Unsu re if he had steroids prior to that. Chest x-ray showed bilateral lower lobe infiltrates. He was re quiring 3 liters of nasal cannula to keep his oxygen sats at 92%. He was subsequently admitted. HOSPITAL COURSE: The patient was seen and examined. The patient was admitted to the hospital by Dr. Jones, and started on nebulizer treatments with DuoNeb and albuterol, cefepime and levofloxacin, and steroids. Serial cardiac biomarkers were obtained, blood pressure was monitored closely and treated . Patient was placed on DVT prophylaxis with Lovenox. From 09/25/2017 to 09/26/2017, the patient improved slightly. He is feeling better, but was still re quiring oxygen. White blood cell count was slightly improved. Rest of labs looked okay. By 09/27/2017, the patient was feeling more short of breath. Chest x-ray was performed that showed i ncreased edema bilaterally. He was started on some Lasix. On 09/28/2017, I took the case over. His breathing was better, he is weaning off oxygen and responde d well to diuresis. He was seen by Pulmonary or Critical Care that night, and agreed with transition ing over to hospital oral antibiotics, and patient continued to improve. On 09/29/2017, he was feeling much better. His bed at [facility] for rehabilitation was approved. He was transferred to [facility] in stable condition for rehabilitation. PHYSICAL EXAMINATION: The patient was seen and examined on the day of discharge. Discharge plan and disposition was discussed with patient face to face at the bedside. DISCHARGE MEDICATIONS: 1. Tylenol as needed. 2. Albuterol nebulizer treatments 2.5 mg nebs q.2 hours p.r.n. shortness of breath or wheezing. 3. Aspirin 81 mg daily. 4. Alphagan 0.2% 1 drop each eye b.i.d. 5. Dorzolamide 1 drop each eye b.i.d. 6. Guaifenesin ER 1200 mg p.o. b.i.d. 7. DuoNebs 3 mL q.6 hours. 8. Latanoprost 0.05% 1 drop each eye at bedtime. 9. Levofloxacin 750 mg p.o. daily for 2 more days. 10. Losartan 100 mg p.o. q.a.m. 11. Zofran 4 mg q.6 hours p.r.n. 12. Rivastigmine transdermal patch q.24 hours. 13. Zoloft 25 mg p.o. q.a.m. 14. Flomax 0.4 mg p.o. q.a.m. 15. Vitamin B complex. FOLLOWUP APPOINTMENT: Follow with primary care physician within a week. DISCHARGE ACTIVITY: Per cardiopulmonary limits. PT and OT has been ordered. DISCHARGE DIET: Heart healthy recommended. DISCHARGE CONDITION: Stable. DISPOSITION: [facility].
--- NOTE | 2017-10-05 10:45 | PQF ---
DENZEL MCCARTNEY DARYL AGUILERA [id number] CLINICAL DOCUMENTATION CLARIFICATION FORM: POST DISCHARGE Please check appropriate box(s) to clarify if Sepsis has been ruled in or ruled out: [ x ] Ruled in diagnosis [ ] Continue to treat [x ] Resolved [ ] Ruled out diagnosis [ ] Cannot rule out diagnosis [ ] Other diagnosis [ ] Unable to determine In addition, please specify: Present on Admission (POA): [ x ] Yes [ ] No [ ] Unable to determine H&P; "The patient presently has signs of developing Sepsis with elevated lactic acid, but this could be secondary to dehydration." PN's; 09/26 - 09/27, "Pt has Sepsis with elevated WBC, improving slowly." DC; "On evaluation, he was found to have white cell count 23,000. Unsure if he had Steroids prior to that." DC DIAGNOSIS; "Acute respiratory failure secondary to acute exacerbation of COPD and bilateral lower lobe infiltrates." "Bilateral lower lobe Pneumonia". Please exercise your independent, professional judgment in responding to the clarification form. Clinical indicators are provided on the bottom of this form for your review CLINICAL INDICATORS - SIGNS / SYMPTOMS / LABS Elevated WBC 23,000 CXR Bilateral infiltrates O2 sat 92% on 3L NC Respirations 18 Elevated lactic acid Pulse oxygen 09/26, 09/27; 90% RISK FACTORS Acute Respiratory Failure Pneumonia terminal manager steroids Physical deconditioning Failed outpt antibiotic tx TREATMENTS IV cefepime, levofloxacin IV steroids Duonebs Albuterol 3 L NC (This form is maintained as a part of the permanent medical record) 2014 [employer]. All Rights Reserved [email or web address] [phone] MTDD
--- NOTE | 2017-10-05 11:20 | PQF ---
DENZEL MCCARTNEY DARYL AGUILERA [id number] CLINICAL DOCUMENTATION CLARIFICATION FORM: POST DISCHARGE Please clarify if documented "Bilateral lower lobe Pneumonia" can be further specified. Please exercise your independent, professional judgment in responding to the clarification form. Clinical indicators are provided on the bottom of this form for your review. Thank you. Please check appropriate box(s): [ ] Aspiration Pneumonia [ ] Aspiration Bronchitis [ ] Empirically treating Gram Negative Pneumonia [ ] Empirically treating Anaerobic Pneumonia [ x ] Pneumonia secondary to (specify organism / underlying disease) COPD exacerbation [ ] Simple Pneumonia (community acquired - nosocomial) [ ] Bronchopneumonia [ ] Pneumonia of unknown etiology [ ] Other diagnosis [ ] Unable to determine In addition, please specify: Present on Admission (POA): [ x ] Yes [ ] No [ ] Unable to determine H&P; "Recently suffering with some cough and cold for past 1-2 weeks and his primary care physician started him on an antibiotic, which he took for almost 10 days to 2 weeks and the patient had no relief and was having persistent shortness of breath and chest tightness." "A chest x-ray, evidence of bilateral pneumonia." DC DIAGNOSIS; " 1. Acute hypoxic respiratory failure, exacerbation COPD; 2. Bilateral lower lobe Pneumonia; 6. Likely probable recurrent aspiration syndrome." PULM CONSULT; "4. Gastroesophageal reflux disease with likely recurrent aspiration." PLAN; "In 4-6 weeks..,he needs to have a repeat chest x-ray to verify the infiltrate in the lung has resolved. In the outpt setting, the patient needs to take care to avoid any reflux-related disease by by avoiding p.o. within 2 hours of being flat and lying semirecumbent while sleeping. He will need to go out on oxygen as he is hypoxic on room air." CLINICAL INDICATORS - SIGNS / SYMPTOMS / LABS Chest pain, expectoration Elevated WBC Current aspiration or vomiting Decreased LOC or altered mental status Dysphagia / + swallow study / impaired gag reflex Purulent sputum SOB, Hypoxia, O2 sats Pulmonary infiltrate / CXR RISK FACTORS Severe Debility and or Dementia GERD 'Likely' recurrent aspiration syndrome Chronic lung disease Tobacco abuse history On home antibiotics for PNA w/o improvement TREATMENTS: Antibiotics IV cefepime and levofloxacin O2 therapy / bronchodilators Pulmonary consult IV fluids Serial CXRs (This form is maintained as a part of the permanent medical record) 2014 [employer]. All Rights Reserved [email or web address] [phone] MTDD
== END 2017-09-29 13:51 | DRG 871 ==
LOC: ERS 10:16 → ERHOLD 12:43 → 2NO 09-26 00:54
PROVIDERS: ADMIT Family Medicine; ATTEND Family Medicine
DX: A41.9 Sepsis, unspecified organism (principal); J96.01 Acute respiratory failure with hypoxia; J18.9 Pneumonia, unspecified organism; E87.70 Fluid overload, unspecified; E86.0 Dehydration; F03.90 Unspecified dementia, unspecified severity, without behavioral disturbance, psychotic disturbance, mood disturbance, and anxiety; J43.2 Centrilobular emphysema; J06.9 Acute upper respiratory infection, unspecified; N40.0 Benign prostatic hyperplasia without lower urinary tract symptoms; I10 Essential (primary) hypertension; F32.9 Major depressive disorder, single episode, unspecified; Z87.891 Personal history of nicotine dependence; K21.9 Gastro-esophageal reflux disease without esophagitis; Z85.46 Personal history of malignant neoplasm of prostate
CPT/HCPCS: 36415; 36416; 71045; 71275; 80048; 80053; 81003; 82553; 83605; 83690; 83735; 83880; 84484; 85007; 85025; 85027; 85379; 87040; 87070; 87086; 87205; 87633; 93005; 93306; 94640; 94667; 96361; 96365; 96366; 96367; 96375; A4216; G8978-GP-CJ; G8979-GP-CJ; G8980-GP-CJ; G8987-GO-CI; G8988-GO-CI; G8989-GO-CI; J0692; J1650; J1940; J1956; J2930; J3370; J7620; S0028